=== PATIENT | female | born 1935 | race Caucasian/White ===

== ENCOUNTER 2019-01-01 17:53 | Inpatient (IN) | payer MEDICARE, MEDICAID ==
--- NOTE | 2019-01-01 19:23 | ED Physician Chart ---
ED Chief Complaint/HPI - Patient Information Date Seen:: 01/01/19 Time Seen:: 19:10 Chief Complaint:: escape risk History of Present Illness:: Patient is reportedly at escape risk from her halfway facility but it is hard to see how she can escape since she has a left above-knee amputation. Patient complained to RN who speaks Bengali of abdominal pain and stated she had gallstones. Allergies:: Allergies Allergy/AdvReac Type Severity Reaction Status Date / Time No Known Allergies Allergy Verified 01/01/19 18:53 Vitals:: Vital Signs - 8 hr 01/01/19 18:53 Temp 97.2 F HR 50 RR 16 BP 134/65 O2 Sat % 97 Historian:: Patient Review:: Transfer documents Reviewed ED Review of Systems - Review of Systems General/Constitutional: No fever, No chills, No weight loss, No weakness, No diaphoresis, No edema, No loss of appetite Skin: No skin lesions, No rash, No bruising Head: No headache, No light-headedness Eyes: No loss of vision, No pain, No diplopia ENT: No earache, No nasal drainage, No sore throat, No tinnitus Neck: No neck pain, No swelling, No thyromegaly, No stiffness, No mass noted Cardio Vascular: No chest pain, No palpitations, No PND, No orthopnea, No edema Pulmonary: No SOB, No cough, No sputum, No wheezing GI: No nausea, No vomiting, No diarrhea, Pain, No melena, No hematochezia, No constipation, No hematemesis G/U: No dysuria, No frequency, No hematuria Musculoskeletal: No bone or joint pain, No back pain, No muscle pain Endocrine: No polyuria, No polydipsia Psychiatric: No prior psych history, No depression, No anxiety, No suicidal ideation Hematopoietic: No bruising, No lymphadenopathy Allergic/Immuno: No urticaria, No angioedema Neurological: No syncope, No focal symptoms, No weakness, No paresthesia, No headache, No seizure, No dizziness, No confusion, No vertigo ED Past Medical History - Past Medical History Past Medical History: HTN, DM, Dementia Family History: Other (unavailable) Social History: Care Facility Surgical History: other (left [id number] amputation) Psychiatricy History: Dementia, Other (psychosis) Medication: Reviewed Family Medical History - Family Member Mother History Unknown: Yes ED Labs/Radiology/EKG Results - Lab Results Results: Laboratory Results WBC 5.2 Th/cmm (4.8-10.8) 01/01/19 19:24 RBC 4.62 Mil/cmm (3.80-5.20) 01/01/19 19:24 Hgb 14.0 gm/dL (12-16) 01/01/19 19:24 Hct 41.8 % (41.0-60) 01/01/19 19:24 MCV 90.5 fl (81-100) 01/01/19 19:24 MCH 30.3 pg (27.0-31.0) 01/01/19 19:24 MCHC Differential 33.5 pg (28.0-36.0) 01/01/19 19:24 RDW 13.2 % (11.5-20.0) 01/01/19 19:24 Plt Count 244 Th/cmm (150-400) 01/01/19 19:24 MPV 7.9 fl 01/01/19 19:24 Neutrophils % 62.9 % (40.0-80.0) 01/01/19 19:24 Lymphocytes % 29.5 % (20.0-50.0) 01/01/19 19:24 Monocytes % 3.8 % (2.0-10.0) 01/01/19 19:24 Eosinophils % 3.6 % (0.0-5.0) 01/01/19 19:24 Basophils % 0.2 % (0.0-2.0) 01/01/19 19:24 Sodium 136 mEq/L (136-145) 01/01/19 19:24 Potassium 4.1 mEq/L (3.5-5.1) 01/01/19 19:24 Chloride 103 mEq/L (98-107) 01/01/19 19:24 Carbon Dioxide 26.5 mEq/L (21.0-31.0) 01/01/19 19:24 Anion Gap 10.6 (7.0-16.0) 01/01/19 19:24 BUN 19 mg/dL (7-25) 01/01/19 19:24 Creatinine 0.6 mg/dL (0.6-1.2) 01/01/19 19:24 Est GFR ( Amer) TNP 01/01/19 19:24 Est GFR (Non-Af Amer) TNP 01/01/19 19:24 BUN/Creatinine Ratio 31.7 01/01/19 19:24 Glucose 91 mg/dL (70-105) 01/01/19 19:24 Calcium 9.3 mg/dL (8.6-10.3) 01/01/19 19:24 Total Bilirubin 0.4 mg/dL (0.3-1.0) 01/01/19 19:24 Direct Bilirubin 0.08 mg/dL (0.0-0.2) 01/01/19 19:24 AST 14 U/L (13-39) 01/01/19 19:24 ALT 10 U/L (7-52) 01/01/19 19:24 Alkaline Phosphatase 80 U/L (34-104) 01/01/19 19:24 Total Protein 7.2 gm/dL (6.0-8.3) 01/01/19 19:24 Albumin 3.8 gm/dL (3.7-5.3) 01/01/19 19:24 Globulin 3.4 gm/dL 01/01/19 19:24 Albumin/Globulin Ratio 1.1 (1.0-1.8) 01/01/19 19:24 - Radiology Results Results: Chest x-ray negative - EKG Interpretations Rate & Rhythm: normal sinus rhythm rate of 53 [place]: normal axis ED Septic Shock - . Is Septic Shock (SBP<90, OR Lactate>4 mmol\L) present?: No - <6hrs of presentation: Vital Signs: Vital Signs - 8 hr 01/01/19 18:53 Temp 97.2 F HR 50 RR 16 BP 134/65 O2 Sat % 97 ED Reassessment (Disposition) - Reassessment Reassessment Condition:: Unchanged - Diagnosis Diagnosis:: Abdominal pain; dementia - Patient Disposition Admitted to:: Med/Surg Spoke to:: Kori Shabazz Admitting Medical Physician:: Kori Shabazz Condition at Disposition:: Stable, Unchanged
[2019-01-01 19:29] LABS: % BASOPHILS 0.2 % (0.0-2.0); % EOSINOPHILS 3.6 % (0.0-5.0); % LYMPHOCYTES 29.5 % (20.0-50.0); % MONOCYTES 3.8 % (2.0-10.0); % NEUTROPHILS 62.9 % (40.0-80.0); EOSINOPHILE ABSOLUTE 0.2 Th/cmm (0.1-0.4); HEMATOCRIT 41.8 % (41.0-60); LYMPHOCYTE ABSOLUTE 1.5 Th/cmm (1.5-3.0); MEAN CELL VOLUME 90.5 fl (81-100); MEAN CORPUSCULAR HEMOGLOBIN 30.3 pg (27.0-31.0); MEAN CORPUSCULAR HGB CONC 33.5 pg (28.0-36.0); MEAN PLATELET VOLUME 7.9 fl; MONOCYTE ABSOLUTE 0.2 Th/cmm (0.3-1.0); NEUTROPHILE ABSOLUTE 3.3 Th/cmm (1.8-8.0); PLATELET COUNT 244 Th/cmm (150-400); RED BLOOD COUNT 4.62 Mil/cmm (3.80-5.20); RED CELL DISTRIBUTION WIDTH 13.2 % (11.5-20.0); WHITE BLOOD COUNT 5.2 Th/cmm (4.8-10.8)
[2019-01-01 19:44] LABS: ANION GAP 10.6 (7.0-16.0); BUN - UREA NITROGEN 19 mg/dL (7-25); CALCIUM SERUM 9.3 mg/dL (8.6-10.3); CARBON DIOXIDE 26.5 mEq/L (21.0-31.0); CHLORIDE 103 mEq/L (98-107); CREATININE - SERUM 0.6 mg/dL (0.6-1.2); GLUCOSE 91 mg/dL (70-105); POTASSIUM SERUM 4.1 mEq/L (3.5-5.1); SODIUM SERUM 136 mEq/L (136-145)
[2019-01-01 19:48] LABS: ALB/GLOB RATIO 1.1 (1.0-1.8); ALBUMIN 3.8 gm/dL (3.7-5.3); BILIRUBIN,TOTAL 0.4 mg/dL (0.3-1.0); TOTAL PROTEIN,SERUM 7.2 gm/dL (6.0-8.3)
[2019-01-01 19:55] LABS: BILIRUBIN,DIRECT 0.08 mg/dL (0.0-0.2)
[2019-01-01 23:08] VITALS: BP 141/54
[2019-01-02 08:14] LABS: % BASOPHILS 0.9 % (0.0-2.0); % EOSINOPHILS 2.2 % (0.0-5.0); % LYMPHOCYTES 25.9 % (20.0-50.0); % MONOCYTES 3.9 % (2.0-10.0); % NEUTROPHILS 67.1 % (40.0-80.0); EOSINOPHILE ABSOLUTE 0.1 Th/cmm (0.1-0.4); HEMATOCRIT 43.1 % (41.0-60); HEMOGLOBIN 14.5 gm/dL (12-16); LYMPHOCYTE ABSOLUTE 1.4 Th/cmm (1.5-3.0); MEAN CELL VOLUME 90.4 fl (81-100); MEAN CORPUSCULAR HEMOGLOBIN 30.3 pg (27.0-31.0); MEAN CORPUSCULAR HGB CONC 33.5 pg (28.0-36.0); MONOCYTE ABSOLUTE 0.2 Th/cmm (0.3-1.0); NEUTROPHILE ABSOLUTE 3.7 Th/cmm (1.8-8.0); PLATELET COUNT 234 Th/cmm (150-400); RED BLOOD COUNT 4.77 Mil/cmm (3.80-5.20); RED CELL DISTRIBUTION WIDTH 12.7 % (11.5-20.0); WHITE BLOOD COUNT 5.4 Th/cmm (4.8-10.8)
[2019-01-02 08:34] LABS: ALB/GLOB RATIO 1.1 (1.0-1.8); ALBUMIN 3.9 gm/dL (3.7-5.3); ALKALINE PHOSPHATASE 92 U/L (34-104); AMYLASE SERUM 90 U/L (29-103); ANION GAP 11.8 (7.0-16.0); BILIRUBIN,TOTAL 0.5 mg/dL (0.3-1.0); BUN - UREA NITROGEN 16 mg/dL (7-25); CALCIUM SERUM 9.4 mg/dL (8.6-10.3); CARBON DIOXIDE 25.2 mEq/L (21.0-31.0); CHLORIDE 105 mEq/L (98-107); CREATININE - SERUM 0.5 mg/dL (0.6-1.2); GLUCOSE 85 mg/dL (70-105); LIPASE 33 U/L (11-82); SGOT 14 U/L (13-39); SGPT/ALT 9 U/L (7-52); SODIUM SERUM 138 mEq/L (136-145); TOTAL PROTEIN,SERUM 7.6 gm/dL (6.0-8.3)
--- NOTE | 2019-01-02 08:53 | Diagnostic Imaging Report ---
Portable chest x-ray HISTORY: Cough Prior exams are not available for comparison. The heart appears enlarged. Accentuation of the interstitial lung markings. However, no acute focal pulmonary processes are seen. Severe deformity noted about the right humeral head associated with dislocation probably chronic. IMPRESSION: 1. No acute focal prominent processes 2. Cardiomegaly 3. Severe deformity about the right humeral head associated with dislocation which appears probably chronic. Clinical correlation is needed.
--- NOTE | 2019-01-02 10:24 | History and Physical ---
History of Present Illness - HPI Chief Complaint: 83 y/o female patient was brought into ER due to complaints of abdominal pain and stating she has gallstones. HPI: 83 y/o female patient was admitted to [facility] due to complaints of abdominal pain and stating she has gallstones. Patient is also considered an escape risk per group home facility. Patient has history of Cough, Hypertension, Diabetes, Dementia and Left above the knee amputation. Patient had an ER assessment and a complete workup was done. Patent had a chest x-ray performed which showed Cardiomegaly and Severe deformity about the right humeral head associated with dislocation which appears probably chronic. Patient was diagnosed with Dementia and Abdominal pain. Patient will have a GI consult and Psych consult. I will follow, treat and monitor patient. Patient will continue present treatment plan as ordered. 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 GI: Report: Other (Abdominal pain, Per patient hx of Gallstones.) Psych: Report: Other (Dementia.) Musculoskeletal: Report: Weakness, Other (Left bka.) Rheumatologic: Report: No pertinent Hx Infectious Disease: Report: No Pertinent Hx Renal/: Report: No Pertinent Hx Endocrine: Report: Diabetes Dermatology: Report: No Pertinent Hx - Past Surgical History Past Surgical History: Other (Left BKA.) Family Medical History - Family Member Mother History Unknown: Yes Ethnicity: Living Status: Unknown Hx Family Cancer: No (unknown) Hx Family Coronary Artery Disease: No (unknown) Hx Family Congestive Heart Failure: No (unknown) Hx Family Hypertension: No (unknown) Hx Family Stroke: No (unknown) Hx Family Diabetes: No (unknown) Hx Family Seizures: No (unknown) Hx Family Dementia: No (unknown) Hx Family AIDS: No (unknown) Hx Family HIV: No Social History Smoke: # pack years Alcohol: None Drugs: None Lives: Alone Domestic Violence: Negative Health Maintenance Health Maintenance: Other (see orders.) - Medications Home Medications: Home Medication Medication Instructions Recorded Type Lisinopril [Zestril] 5 mg PO DAILY 01/01/19 History Metoprolol Tartrate 25 mg PO BID 01/01/19 History QUEtiapine Fumarate [SEROquel] 25 mg PO DAILY 01/01/19 History QUEtiapine Fumarate [SEROquel] 50 mg PO Q12H 01/01/19 History Other Medications: Please see medication reconciliation list. - Allergies Allergies/Adverse Reactions: Allergies Allergy/AdvReac Type Severity Reaction Status Date / Time No Known Allergies Allergy Verified 01/01/19 18:53 Review of Systems - Review of Systems Review of Systems: Patient c/o abdominal pain. Constitutional: Report: No Significant Eyes: Report: No Significant ENT: Report: No Significant Respiratory: Report: No Significant Cardiovascular: Report: No Significant Gastrointestinal: Report: Abdominal Pain Genitourinary: Report: No Significant Musculoskeletal: Report: Other (Left BKA.) Skin: Report: No Significant Neurological: Report: Confusion Physical Exam - Physical Exam HEENT: Report: Ears Nose Throat within normal limits Neck: Report: Within normal limits Cardiovascular Systems: Report: +s1/s2 noted Respiratory: Report: Breath Sounds are within normal limits Abdomen: Report: Tender to palpation Back: Report: Inspection of back is within normal limits. Extremities: Report: Other (Left BKA.) Skin: Report: Color of skin is within normal limits Neuro/Psych: Report: Disoriented to name time or place - Lab Results All Lab Results last 24 hours: Laboratory Results - last 24 hr 01/01/19 01/01/19 01/01/19 19:24 19:24 19:24 WBC 5.2 RBC 4.62 Hgb 14.0 Hct 41.8 MCV 90.5 MCH 30.3 MCHC Differential 33.5 RDW 13.2 Plt Count 244 MPV 7.9 Neutrophils % 62.9 Lymphocytes % 29.5 Monocytes % 3.8 Eosinophils % 3.6 Basophils % 0.2 Sodium 136 Potassium 4.1 Chloride 103 Carbon Dioxide 26.5 Anion Gap 10.6 BUN 19 Creatinine 0.6 Est GFR ( Amer) TNP Est GFR (Non-Af Amer) TNP BUN/Creatinine Ratio 31.7 Glucose 91 Calcium 9.3 Total Bilirubin 0.4 Direct Bilirubin 0.08 AST 14 ALT 10 Alkaline Phosphatase 80 Total Protein 7.2 Albumin 3.8 Globulin 3.4 Albumin/Globulin Ratio 1.1 Amylase Lipase 01/02/19 01/02/19 07:50 07:50 WBC 5.4 RBC 4.77 Hgb 14.5 Hct 43.1 MCV 90.4 MCH 30.3 MCHC Differential 33.5 RDW 12.7 Plt Count 234 MPV 8.0 Neutrophils % 67.1 Lymphocytes % 25.9 Monocytes % 3.9 Eosinophils % 2.2 Basophils % 0.9 Sodium 138 Potassium 4.0 Chloride 105 Carbon Dioxide 25.2 Anion Gap 11.8 BUN 16 Creatinine 0.5 L Est GFR ( Amer) TNP Est GFR (Non-Af Amer) TNP BUN/Creatinine Ratio 32.0 Glucose 85 Calcium 9.4 Total Bilirubin 0.5 Direct Bilirubin AST 14 ALT 9 Alkaline Phosphatase 92 Total Protein 7.6 Albumin 3.9 Globulin 3.7 Albumin/Globulin Ratio 1.1 Amylase 90 Lipase 33 - Assessment Assessment: History of Cough Advancing Dementia. Abdominal pain. Hypertension. Diabetes. Left above the knee amputation. - Plan Plan: Continuation of care GI consult and Psych consult Accu-check twice daily Monitor vital, Diabetic low sodium diet and labs Continue present meds as directed Pain Management Physical therapy Occupational therapy Fall precaution Continue current treatment plan as ordered.
[2019-01-02] MEDS ORDERED: VTE Chemical Prophylaxis Screen/Admission MC PRN (16:12)
[2019-01-02] MEDS: Heparin Sod 5,000Units/ML 5,000 UNITS/ML VIAL SUBQ SCH (21:44)
[2019-01-03 05:40] LABS: % BASOPHILS 0.2 % (0.0-2.0); % EOSINOPHILS 2.4 % (0.0-5.0); % LYMPHOCYTES 28.7 % (20.0-50.0); % NEUTROPHILS 64.7 % (40.0-80.0); EOSINOPHILE ABSOLUTE 0.1 Th/cmm (0.1-0.4); HEMOGLOBIN 13.5 gm/dL (12-16); LYMPHOCYTE ABSOLUTE 1.5 Th/cmm (1.5-3.0); MEAN CELL VOLUME 89.6 fl (81-100); MEAN CORPUSCULAR HEMOGLOBIN 30.2 pg (27.0-31.0); MEAN CORPUSCULAR HGB CONC 33.7 pg (28.0-36.0); MONOCYTE ABSOLUTE 0.2 Th/cmm (0.3-1.0); NEUTROPHILE ABSOLUTE 3.5 Th/cmm (1.8-8.0); PLATELET COUNT 249 Th/cmm (150-400); RED BLOOD COUNT 4.47 Mil/cmm (3.80-5.20); RED CELL DISTRIBUTION WIDTH 12.7 % (11.5-20.0); WHITE BLOOD COUNT 5.3 Th/cmm (4.8-10.8)
[2019-01-03 05:52] LABS: ALB/GLOB RATIO 1.1 (1.0-1.8); ALBUMIN 3.9 gm/dL (3.7-5.3); ALKALINE PHOSPHATASE 103 U/L (34-104); ANION GAP 15.7 (7.0-16.0); BILIRUBIN,TOTAL 0.2 mg/dL (0.3-1.0); BUN - UREA NITROGEN 17 mg/dL (7-25); CALCIUM SERUM 9.7 mg/dL (8.6-10.3); CARBON DIOXIDE 22.9 mEq/L (21.0-31.0); CHLORIDE 105 mEq/L (98-107); CREATININE - SERUM 0.5 mg/dL (0.6-1.2); GLUCOSE 101 mg/dL (70-105); LIPASE 54 U/L (11-82); POTASSIUM SERUM 3.6 mEq/L (3.5-5.1); SGOT 14 U/L (13-39); SGPT/ALT 13 U/L (7-52); SODIUM SERUM 140 mEq/L (136-145); TOTAL PROTEIN,SERUM 7.4 gm/dL (6.0-8.3)
[2019-01-03] MEDS: Heparin Sod 5,000Units/ML 5,000 UNITS/ML VIAL SUBQ SCH ×2 (08:23→21:01)
--- NOTE | 2019-01-03 09:44 | Consultation ---
DATE OF CONSULTATION: 01/02/2019 REASON FOR CONSULT: Abdominal pain. HISTORY OF PRESENT ILLNESS: This consult was obtained through the courtesy of Dr. Shabazz for this 83-year-old with history of hypertension, dementia, admitted to the hospital because of abdominal pain and weakness. The patient stated she was not feeling that good. No specific finding, but she was feeling weak, tired and have abdominal discomfort. She came to the hospital, admitted for the evaluation, GI consult was called in further evaluation. The patient unfortunately is a very poor historian, unable to obtain any significant history from her, but she denies any GI bleed. She denies any weight loss. She has some nausea but no vomiting. I am not feeling well, with still abdominal discomfort. PAST MEDICAL HISTORY: Hypertension, dementia. PAST SURGICAL HISTORY: Left AKA. SOCIAL HISTORY: Nonsmoker, nonalcoholic and IV drug abuser. FAMILY HISTORY: Noncontributory. ALLERGIES: No known drug allergies. MEDICATIONS: Not known. REVIEW OF SYSTEMS: No weight loss. No GI bleed. No difficulty swallowing. PHYSICAL EXAMINATION: GENERAL: The patient is awake, oriented to self. VITAL SIGNS: Blood pressure is 142/83, heart rate 63, respiratory rate 18, temperature 97.4. HEAD AND NECK EXAMINATION: Pupils are reactive to light. Extraocular muscles could not be tested. Oral cavity, no lesion. Neck, supple. CHEST: Good air entry. LUNGS: Clear to auscultation. CARDIOVASCULAR SYSTEM: Showed regular rate and rhythm. No murmur or gallop. ABDOMEN: Soft. Not tender. Not distended. Bowel sounds present. EXTREMITIES: Right side no edema. Left side above-knee amputation. CENTRAL NERVOUS SYSTEM: Grossly nonfocal. LABS: CBC unremarkable. Chemistry is normal. The patient had a chest x-ray, which was normal. ASSESSMENT AND PLAN: Abdominal pain. At this time seems very nonspecific. There was no laboratory findings. At this time, we will advance the patient's diet and see how she is doing. If pain reoccurs again, then we will consider CT scan of the abdomen and pelvis and consider an endoscopy, but if things resolve, then she can discharged home. Other medical problems such as dementia, hypertension, diabetes, peripheral vascular disease as per Dr. Shabazz. Thank you, Dr. Shabazz for allowing me to participate in the care of the patient. If you have any further question, please let me know. NIKOLAY: 01/02/2019 12:18 JOB# [id number]
--- NOTE | 2019-01-03 09:45 | GI Progress Note ---
Subjective - Review of Systems Service Date: 01/03/19 Subjective: Eating 50% meals. Denies abd pain Objective - Results Result Diagrams: 01/03/19 05:25 01/03/19 05:25 Recent Labs: Laboratory Last Values WBC 5.3 Th/cmm (4.8-10.8) 01/03/19 05:25 RBC 4.47 Mil/cmm (3.80-5.20) 01/03/19 05:25 Hgb 13.5 gm/dL (12-16) 01/03/19 05:25 Hct 40.0 % (41.0-60) L 01/03/19 05:25 MCV 89.6 fl (81-100) 01/03/19 05:25 MCH 30.2 pg (27.0-31.0) 01/03/19 05:25 MCHC Differential 33.7 pg (28.0-36.0) 01/03/19 05:25 RDW 12.7 % (11.5-20.0) 01/03/19 05:25 Plt Count 249 Th/cmm (150-400) 01/03/19 05:25 MPV 8.0 fl 01/03/19 05:25 Neutrophils % 64.7 % (40.0-80.0) 01/03/19 05:25 Lymphocytes % 28.7 % (20.0-50.0) 01/03/19 05:25 Monocytes % 4.0 % (2.0-10.0) 01/03/19 05:25 Eosinophils % 2.4 % (0.0-5.0) 01/03/19 05:25 Basophils % 0.2 % (0.0-2.0) 01/03/19 05:25 Sodium 140 mEq/L (136-145) 01/03/19 05:25 Potassium 3.6 mEq/L (3.5-5.1) 01/03/19 05:25 Chloride 105 mEq/L (98-107) 01/03/19 05:25 Carbon Dioxide 22.9 mEq/L (21.0-31.0) 01/03/19 05:25 Anion Gap 15.7 (7.0-16.0) 01/03/19 05:25 BUN 17 mg/dL (7-25) 01/03/19 05:25 Creatinine 0.5 mg/dL (0.6-1.2) L 01/03/19 05:25 Est GFR ( Amer) TNP 01/03/19 05:25 Est GFR (Non-Af Amer) TNP 01/03/19 05:25 BUN/Creatinine Ratio 34.0 01/03/19 05:25 Glucose 101 mg/dL (70-105) 01/03/19 05:25 Calcium 9.7 mg/dL (8.6-10.3) 01/03/19 05:25 Total Bilirubin 0.2 mg/dL (0.3-1.0) L 01/03/19 05:25 Direct Bilirubin 0.08 mg/dL (0.0-0.2) 01/01/19 19:24 AST 14 U/L (13-39) 01/03/19 05:25 ALT 13 U/L (7-52) 01/03/19 05:25 Alkaline Phosphatase 103 U/L (34-104) 01/03/19 05:25 Total Protein 7.4 gm/dL (6.0-8.3) 01/03/19 05:25 Albumin 3.9 gm/dL (3.7-5.3) 01/03/19 05:25 Globulin 3.5 gm/dL 01/03/19 05:25 Albumin/Globulin Ratio 1.1 (1.0-1.8) 01/03/19 05:25 Amylase 90 U/L (29-103) 01/02/19 07:50 Lipase 54 U/L (11-82) 01/03/19 05:25 - Physical Exam Vitals and I&O: Vital Signs Temp 97.1 F 01/03/19 08:04 Pulse 64 01/03/19 08:25 Resp 19 01/03/19 08:04 BP 131/65 01/03/19 08:25 Pulse Ox 96 01/03/19 08:04 Intake & Output 01/02/19 01/03/19 01/03/19 18:59 06:59 18:59 Intake Total 200 340 Output Total 250 1 Balance -50 339 Weight (lbs) 52.163 kg 52.39 kg Intake: Oral 200 340 Output: Urine 250 1 Other: # Voids 2 2 # Bowel Movements 1 0 Weight Source Bedscale Bedscale Active Medications: Current Medications Heparin Sodium (Porcine) (Heparin) 5,000 units SUBQ Q12H [facility] Stop: 03/03/19 20:59 Last Admin: 01/03/19 08:23 Dose: 5,000 units Lisinopril (Zestril) 5 mg PO DAILY [facility] Stop: 03/04/19 08:59 Last Admin: 01/03/19 08:25 Dose: 5 mg Metoprolol Tartrate (Lopressor) 25 mg PO BID [facility] Stop: 03/04/19 08:59 Last Admin: 01/03/19 08:24 Dose: 25 mg Miscellaneous (Vte Chemical Prophylaxis Screen/ Admission) 1 ea [facility] PRN PRN PRN Reason: PROTOCOL Stop: 03/03/19 16:11 Quetiapine Fumarate (Seroquel) 25 mg PO DAILY [facility]; Protocol Stop: 03/04/19 08:59 Last Admin: 01/03/19 08:25 Dose: 25 mg Quetiapine Fumarate (Seroquel) 50 mg PO Q12H [facility]; Protocol Stop: 03/03/19 21:59 Last Admin: 01/02/19 22:00 Dose: 50 mg General: Alert HEENT: Atraumatic Neck: Supple Cardiovascular: Regular rate Lungs: Clear to auscultation Abdomen: Bowel sounds, Soft, no Tender, no Hepatomegaly, no Splenomegaly, no Distended, no Rebound, no Mass Skin: no Rash Assessment/Plan - Assessment Assessment: # Reported abd pain # History of gallstones Thus far, workup has been unremarkable and pt is tolerating a diet. Plan: - cont diet as tolerated - no need for cholecystectomy. If pain returns, suggest abd US - supportive measures - psychiatric mgmt as per primary
[2019-01-04] MEDS: Heparin Sod 5,000Units/ML 5,000 UNITS/ML VIAL SUBQ SCH ×2 (11:05→22:16)
--- NOTE | 2019-01-04 11:49 | GI Progress Note ---
Subjective - Review of Systems Service Date: 01/04/19 Subjective: Sitting at the RN station, eating meals. Objective - Results Result Diagrams: 01/03/19 05:25 01/03/19 05:25 Recent Labs: Laboratory Last Values WBC 5.3 Th/cmm (4.8-10.8) 01/03/19 05:25 RBC 4.47 Mil/cmm (3.80-5.20) 01/03/19 05:25 Hgb 13.5 gm/dL (12-16) 01/03/19 05:25 Hct 40.0 % (41.0-60) L 01/03/19 05:25 MCV 89.6 fl (81-100) 01/03/19 05:25 MCH 30.2 pg (27.0-31.0) 01/03/19 05:25 MCHC Differential 33.7 pg (28.0-36.0) 01/03/19 05:25 RDW 12.7 % (11.5-20.0) 01/03/19 05:25 Plt Count 249 Th/cmm (150-400) 01/03/19 05:25 MPV 8.0 fl 01/03/19 05:25 Neutrophils % 64.7 % (40.0-80.0) 01/03/19 05:25 Lymphocytes % 28.7 % (20.0-50.0) 01/03/19 05:25 Monocytes % 4.0 % (2.0-10.0) 01/03/19 05:25 Eosinophils % 2.4 % (0.0-5.0) 01/03/19 05:25 Basophils % 0.2 % (0.0-2.0) 01/03/19 05:25 Sodium 140 mEq/L (136-145) 01/03/19 05:25 Potassium 3.6 mEq/L (3.5-5.1) 01/03/19 05:25 Chloride 105 mEq/L (98-107) 01/03/19 05:25 Carbon Dioxide 22.9 mEq/L (21.0-31.0) 01/03/19 05:25 Anion Gap 15.7 (7.0-16.0) 01/03/19 05:25 BUN 17 mg/dL (7-25) 01/03/19 05:25 Creatinine 0.5 mg/dL (0.6-1.2) L 01/03/19 05:25 Est GFR ( Amer) TNP 01/03/19 05:25 Est GFR (Non-Af Amer) TNP 01/03/19 05:25 BUN/Creatinine Ratio 34.0 01/03/19 05:25 Glucose 101 mg/dL (70-105) 01/03/19 05:25 Calcium 9.7 mg/dL (8.6-10.3) 01/03/19 05:25 Total Bilirubin 0.2 mg/dL (0.3-1.0) L 01/03/19 05:25 Direct Bilirubin 0.08 mg/dL (0.0-0.2) 01/01/19 19:24 AST 14 U/L (13-39) 01/03/19 05:25 ALT 13 U/L (7-52) 01/03/19 05:25 Alkaline Phosphatase 103 U/L (34-104) 01/03/19 05:25 Total Protein 7.4 gm/dL (6.0-8.3) 01/03/19 05:25 Albumin 3.9 gm/dL (3.7-5.3) 01/03/19 05:25 Globulin 3.5 gm/dL 01/03/19 05:25 Albumin/Globulin Ratio 1.1 (1.0-1.8) 01/03/19 05:25 Amylase 90 U/L (29-103) 01/02/19 07:50 Lipase 54 U/L (11-82) 01/03/19 05:25 - Physical Exam Vitals and I&O: Vital Signs Temp 98.2 F 01/04/19 04:00 Pulse 76 01/04/19 10:48 Resp 20 01/04/19 04:00 BP 142/73 01/04/19 10:48 Pulse Ox 97 01/04/19 04:00 Intake & Output 01/03/19 01/04/19 01/04/19 18:59 06:59 18:59 Intake Total 500 480 Balance 500 480 Weight (lbs) 52.163 kg 52.163 kg Intake: Oral 500 480 Other: # Voids 4 2 # Bowel Movements 0 0 Weight Source Bedscale Bedscale Active Medications: Current Medications Heparin Sodium (Porcine) (Heparin) 5,000 units SUBQ Q12H [facility] Stop: 03/03/19 20:59 Last Admin: 01/04/19 11:05 Dose: 5,000 units Lisinopril (Zestril) 5 mg PO DAILY [facility] Stop: 03/04/19 08:59 Last Admin: 01/04/19 10:48 Dose: 5 mg Lorazepam (Ativan) 1 mg PO Q4HR PRN; Protocol PRN Reason: AGITATION Stop: 03/04/19 22:18 Last Admin: 01/03/19 22:44 Dose: 1 mg Metoprolol Tartrate (Lopressor) 25 mg PO BID [facility] Stop: 03/04/19 08:59 Last Admin: 01/04/19 10:47 Dose: 25 mg Miscellaneous (Vte Chemical Prophylaxis Screen/ Admission) 1 ea [facility] PRN PRN PRN Reason: PROTOCOL Stop: 03/03/19 16:11 Quetiapine Fumarate (Seroquel) 25 mg PO DAILY [facility]; Protocol Stop: 03/04/19 08:59 Last Admin: 01/04/19 10:39 Dose: 25 mg Quetiapine Fumarate (Seroquel) 50 mg PO Q12H [facility]; Protocol Stop: 03/03/19 21:59 Last Admin: 01/04/19 10:39 Dose: 50 mg General: Alert HEENT: Atraumatic Neck: Supple Cardiovascular: Regular rate Lungs: Clear to auscultation Abdomen: Bowel sounds, Soft, no Tender, no Hepatomegaly, no Splenomegaly, no Distended, no Rebound, no Mass Skin: no Rash Assessment/Plan - Assessment Assessment: # Reported abd pain # History of gallstones Thus far, workup has been unremarkable and pt is tolerating a diet. Plan: - cont diet as tolerated - no need for cholecystectomy. If pain returns, suggest abd US - supportive measures - psychiatric mgmt as per primary GI to see as needed, please call with any questions
--- NOTE | 2019-01-04 12:17 | Internal Medicine Prog Note ---
Internal Medicine Subjective - Subjective Patient seen and examined:: chart reviewed Patient is:: awake, other (doing better) Per staff patient has:: no adverse event Internal Medicine Objective - Results Result Diagrams: 01/03/19 05:25 01/03/19 05:25 Recent Labs: Laboratory Last Values WBC 5.3 Th/cmm (4.8-10.8) 01/03/19 05:25 RBC 4.47 Mil/cmm (3.80-5.20) 01/03/19 05:25 Hgb 13.5 gm/dL (12-16) 01/03/19 05:25 Hct 40.0 % (41.0-60) L 01/03/19 05:25 MCV 89.6 fl (81-100) 01/03/19 05:25 MCH 30.2 pg (27.0-31.0) 01/03/19 05:25 MCHC Differential 33.7 pg (28.0-36.0) 01/03/19 05:25 RDW 12.7 % (11.5-20.0) 01/03/19 05:25 Plt Count 249 Th/cmm (150-400) 01/03/19 05:25 MPV 8.0 fl 01/03/19 05:25 Neutrophils % 64.7 % (40.0-80.0) 01/03/19 05:25 Lymphocytes % 28.7 % (20.0-50.0) 01/03/19 05:25 Monocytes % 4.0 % (2.0-10.0) 01/03/19 05:25 Eosinophils % 2.4 % (0.0-5.0) 01/03/19 05:25 Basophils % 0.2 % (0.0-2.0) 01/03/19 05:25 Sodium 140 mEq/L (136-145) 01/03/19 05:25 Potassium 3.6 mEq/L (3.5-5.1) 01/03/19 05:25 Chloride 105 mEq/L (98-107) 01/03/19 05:25 Carbon Dioxide 22.9 mEq/L (21.0-31.0) 01/03/19 05:25 Anion Gap 15.7 (7.0-16.0) 01/03/19 05:25 BUN 17 mg/dL (7-25) 01/03/19 05:25 Creatinine 0.5 mg/dL (0.6-1.2) L 01/03/19 05:25 Est GFR ( Amer) TNP 01/03/19 05:25 Est GFR (Non-Af Amer) TNP 01/03/19 05:25 BUN/Creatinine Ratio 34.0 01/03/19 05:25 Glucose 101 mg/dL (70-105) 01/03/19 05:25 Calcium 9.7 mg/dL (8.6-10.3) 01/03/19 05:25 Total Bilirubin 0.2 mg/dL (0.3-1.0) L 01/03/19 05:25 Direct Bilirubin 0.08 mg/dL (0.0-0.2) 01/01/19 19:24 AST 14 U/L (13-39) 01/03/19 05:25 ALT 13 U/L (7-52) 01/03/19 05:25 Alkaline Phosphatase 103 U/L (34-104) 01/03/19 05:25 Total Protein 7.4 gm/dL (6.0-8.3) 01/03/19 05:25 Albumin 3.9 gm/dL (3.7-5.3) 01/03/19 05:25 Globulin 3.5 gm/dL 01/03/19 05:25 Albumin/Globulin Ratio 1.1 (1.0-1.8) 01/03/19 05:25 Amylase 90 U/L (29-103) 01/02/19 07:50 Lipase 54 U/L (11-82) 01/03/19 05:25 - Physical Exam Vitals and I&O: Vital Signs Temp 98.6 F 01/04/19 08:00 Pulse 76 01/04/19 10:48 Resp 18 01/04/19 08:00 BP 142/73 01/04/19 10:48 Pulse Ox 94 01/04/19 08:00 Intake & Output 01/03/19 01/04/19 01/04/19 18:59 06:59 18:59 Intake Total 500 480 Balance 500 480 Weight (lbs) 52.163 kg 52.163 kg Intake: Oral 500 480 Other: # Voids 4 2 # Bowel Movements 0 0 Stool Characteristics Formed Brown Weight Source Bedscale Bedscale Active Medications: Current Medications Heparin Sodium (Porcine) (Heparin) 5,000 units SUBQ Q12H [facility] Stop: 03/03/19 20:59 Last Admin: 01/04/19 11:05 Dose: 5,000 units Lisinopril (Zestril) 5 mg PO DAILY [facility] Stop: 03/04/19 08:59 Last Admin: 01/04/19 10:48 Dose: 5 mg Lorazepam (Ativan) 1 mg PO Q4HR PRN; Protocol PRN Reason: AGITATION Stop: 03/04/19 22:18 Last Admin: 01/03/19 22:44 Dose: 1 mg Metoprolol Tartrate (Lopressor) 25 mg PO BID [facility] Stop: 03/04/19 08:59 Last Admin: 01/04/19 10:47 Dose: 25 mg Miscellaneous (Vte Chemical Prophylaxis Screen/ Admission) 1 ea [facility] PRN PRN PRN Reason: PROTOCOL Stop: 03/03/19 16:11 Quetiapine Fumarate (Seroquel) 25 mg PO DAILY [facility]; Protocol Stop: 03/04/19 08:59 Last Admin: 01/04/19 10:39 Dose: 25 mg Quetiapine Fumarate (Seroquel) 50 mg PO Q12H [facility]; Protocol Stop: 03/03/19 21:59 Last Admin: 01/04/19 10:39 Dose: 50 mg General: weak, alert HEENT: NC/AT Neck: Supple Lungs: CTAB Cardiovascular: RRR, Normal S1, Normal S2 Abdomen: soft, non-tender Extremities: clear Neurological: no change Internal Medicine Assmt/Plan - Assessment Assessment: History of Cough Advancing Dementia. Abdominal pain. Hypertension. Diabetes. Left above the knee amputation. - Plan Plan: Continuation of care GI consult and Psych consult Accu-check twice daily Monitor vital, Diabetic low sodium diet and labs Continue present meds as directed Pain Management Physical therapy Occupational therapy Fall precaution Continue current treatment plan as ordered.
[2019-01-04 13:04] LABS: % BASOPHILS 0.4 % (0.0-2.0); % EOSINOPHILS 2.2 % (0.0-5.0); % LYMPHOCYTES 21.6 % (20.0-50.0); % MONOCYTES 5.9 % (2.0-10.0); % NEUTROPHILS 69.9 % (40.0-80.0); EOSINOPHILE ABSOLUTE 0.1 Th/cmm (0.1-0.4); HEMATOCRIT 38.9 % (41.0-60); HEMOGLOBIN 13.3 gm/dL (12-16); LYMPHOCYTE ABSOLUTE 1.1 Th/cmm (1.5-3.0); MEAN CELL VOLUME 89.4 fl (81-100); MEAN CORPUSCULAR HEMOGLOBIN 30.6 pg (27.0-31.0); MEAN CORPUSCULAR HGB CONC 34.2 pg (28.0-36.0); MEAN PLATELET VOLUME 8.1 fl; MONOCYTE ABSOLUTE 0.3 Th/cmm (0.3-1.0); NEUTROPHILE ABSOLUTE 3.8 Th/cmm (1.8-8.0); PLATELET COUNT 224 Th/cmm (150-400); RED BLOOD COUNT 4.35 Mil/cmm (3.80-5.20); RED CELL DISTRIBUTION WIDTH 12.8 % (11.5-20.0); WHITE BLOOD COUNT 5.3 Th/cmm (4.8-10.8)
[2019-01-05 05:44] LABS: ANION GAP 10.8 (7.0-16.0); BUN - UREA NITROGEN 22 mg/dL (7-25); CALCIUM SERUM 9.2 mg/dL (8.6-10.3); CARBON DIOXIDE 24.1 mEq/L (21.0-31.0); CHLORIDE 107 mEq/L (98-107); CREATININE - SERUM 0.6 mg/dL (0.6-1.2); GLUCOSE 82 mg/dL (70-105); POTASSIUM SERUM 3.9 mEq/L (3.5-5.1); SODIUM SERUM 138 mEq/L (136-145)
[2019-01-05] MEDS: Heparin Sod 5,000Units/ML 5,000 UNITS/ML VIAL SUBQ SCH (09:27)
--- NOTE | 2019-01-05 15:19 | Internal Medicine Prog Note ---
Internal Medicine Subjective - Subjective Service Date: 01/05/19 Patient seen and examined:: with staff, chart reviewed Patient is:: awake, other (mild cough.) Patient Complaints of:: cough, other (improving.) Per staff patient has:: no adverse event, no episodes of fall Internal Medicine Objective - Results Result Diagrams: 01/04/19 13:00 01/05/19 04:45 Recent Labs: Laboratory Last Values WBC 5.3 Th/cmm (4.8-10.8) 01/04/19 13:00 RBC 4.35 Mil/cmm (3.80-5.20) 01/04/19 13:00 Hgb 13.3 gm/dL (12-16) 01/04/19 13:00 Hct 38.9 % (41.0-60) L 01/04/19 13:00 MCV 89.4 fl (81-100) 01/04/19 13:00 MCH 30.6 pg (27.0-31.0) 01/04/19 13:00 MCHC Differential 34.2 pg (28.0-36.0) 01/04/19 13:00 RDW 12.8 % (11.5-20.0) 01/04/19 13:00 Plt Count 224 Th/cmm (150-400) 01/04/19 13:00 MPV 8.1 fl 01/04/19 13:00 Neutrophils % 69.9 % (40.0-80.0) 01/04/19 13:00 Lymphocytes % 21.6 % (20.0-50.0) 01/04/19 13:00 Monocytes % 5.9 % (2.0-10.0) 01/04/19 13:00 Eosinophils % 2.2 % (0.0-5.0) 01/04/19 13:00 Basophils % 0.4 % (0.0-2.0) 01/04/19 13:00 Sodium 138 mEq/L (136-145) 01/05/19 04:45 Potassium 3.9 mEq/L (3.5-5.1) 01/05/19 04:45 Chloride 107 mEq/L (98-107) 01/05/19 04:45 Carbon Dioxide 24.1 mEq/L (21.0-31.0) 01/05/19 04:45 Anion Gap 10.8 (7.0-16.0) 01/05/19 04:45 BUN 22 mg/dL (7-25) 01/05/19 04:45 Creatinine 0.6 mg/dL (0.6-1.2) 01/05/19 04:45 Est GFR ( Amer) TNP 01/05/19 04:45 Est GFR (Non-Af Amer) TNP 01/05/19 04:45 BUN/Creatinine Ratio 36.7 01/05/19 04:45 Glucose 82 mg/dL (70-105) 01/05/19 04:45 Calcium 9.2 mg/dL (8.6-10.3) 01/05/19 04:45 Total Bilirubin 0.2 mg/dL (0.3-1.0) L 01/03/19 05:25 Direct Bilirubin 0.08 mg/dL (0.0-0.2) 01/01/19 19:24 AST 14 U/L (13-39) 01/03/19 05:25 ALT 13 U/L (7-52) 01/03/19 05:25 Alkaline Phosphatase 103 U/L (34-104) 01/03/19 05:25 Total Protein 7.4 gm/dL (6.0-8.3) 01/03/19 05:25 Albumin 3.9 gm/dL (3.7-5.3) 01/03/19 05:25 Globulin 3.5 gm/dL 01/03/19 05:25 Albumin/Globulin Ratio 1.1 (1.0-1.8) 01/03/19 05:25 Amylase 90 U/L (29-103) 01/02/19 07:50 Lipase 54 U/L (11-82) 01/03/19 05:25 - Physical Exam Vitals and I&O: Vital Signs Temp 97.9 F 01/05/19 11:57 Pulse 68 01/05/19 11:57 Resp 20 01/05/19 11:57 BP 107/47 01/05/19 11:57 Pulse Ox 94 01/05/19 11:57 Intake & Output 01/04/19 01/05/19 01/05/19 18:59 06:59 18:59 Intake Total 750 Balance 750 Weight (lbs) 52.163 kg 52.163 kg Intake: Oral 750 Other: # Voids 1 # Bowel Movements 1 Stool Characteristics Formed Formed Brown Brown Weight Source Bedscale Bedscale Active Medications: Current Medications Heparin Sodium (Porcine) (Heparin) 5,000 units SUBQ Q12H [facility] Stop: 03/03/19 20:59 Last Admin: 01/05/19 09:27 Dose: 5,000 units Lisinopril (Zestril) 5 mg PO DAILY [facility] Stop: 03/04/19 08:59 Last Admin: 01/05/19 09:27 Dose: Not Given Lorazepam (Ativan) 1 mg PO Q4HR PRN; Protocol PRN Reason: AGITATION Stop: 03/04/19 22:18 Last Admin: 01/03/19 22:44 Dose: 1 mg Metoprolol Tartrate (Lopressor) 25 mg PO BID [facility] Stop: 03/04/19 08:59 Last Admin: 01/05/19 09:26 Dose: Not Given Miscellaneous (Vte Chemical Prophylaxis Screen/ Admission) 1 ea [facility] PRN PRN PRN Reason: PROTOCOL Stop: 03/03/19 16:11 Quetiapine Fumarate (Seroquel) 25 mg PO DAILY [facility]; Protocol Stop: 03/04/19 08:59 Last Admin: 01/05/19 09:26 Dose: 25 mg Quetiapine Fumarate (Seroquel) 50 mg PO Q12H [facility]; Protocol Stop: 03/03/19 21:59 Last Admin: 01/05/19 09:26 Dose: 50 mg Physical Exam: 83 y/o female patient has hx of cough. General: weak, alert HEENT: NC/AT Neck: Supple Lungs: CTAB Cardiovascular: RRR, Normal S1, Normal S2 Abdomen: soft, non-tender Extremities: clear Neurological: no change Internal Medicine Assmt/Plan - Assessment Assessment: History of Cough Advancing Dementia. Abdominal pain. Hypertension. Diabetes. Left above the knee amputation. - Plan Plan: Continuation of care Accu-check twice daily Monitor vital, Diabetic low sodium diet and labs Continue present meds as directed Pain Management Physical therapy Occupational therapy Fall precaution Continue current treatment plan as ordered. Nutritional Asmnt/Malnutr-PDOC - Dietary Evaluation Malnutrition Findings (Please click <Entered> for more info): see orders.
--- NOTE | 2019-01-18 22:48 | Discharge Summary ---
DATE OF DISCHARGE: 01/05/2019 This patient was admitted to [facility] because of abdominal pain and stating the patient had some gallstones. The patient was admitted for complete abdominal workup. The patient also found to have encephalopathy, dementia and status post left above knee amputation. The patient has GI psych consult as well as complete workup patient improved. The patient is in stable condition on 01/06/2019, was discharged back to the [facility] in stable condition where I will follow the patient. [facility]# [id number]
== END 2019-01-05 17:44 | DRG 444 ==
LOC: ER 17:53 → MSI 20:55
PROVIDERS: ADMIT Internal Medicine; ATTEND Internal Medicine
DX: K80.20 Calculus of gallbladder without cholecystitis without obstruction (principal); G93.41 Metabolic encephalopathy; F03.90 Unspecified dementia, unspecified severity, without behavioral disturbance, psychotic disturbance, mood disturbance, and anxiety; E11.51 Type 2 diabetes mellitus with diabetic peripheral angiopathy without gangrene; I10 Essential (primary) hypertension; Z60.2 Problems related to living alone; Z89.612 Acquired absence of left leg above knee
CPT/HCPCS: 36415-UA; 71045-TC; 80048-TC; 80053-TC; 80076-TC; 82150-TC; 83690-TC; 85025-TC; 93005; J1644; Z7610